=== PATIENT | female | born 1995 | race Caucasian/White ===

== ENCOUNTER 2017-10-29 19:59 | Observation (INO) | payer BC, SELFPAY ==
[2017-10-29] VITALS (13 sets, daily range): BP systolic 107–133; BP diastolic 56–90; PULSE 62–73; RESP 13–19; TEMP 36.6–36.8; O2SAT 97–100
--- NOTE | 2017-10-29 20:28 | ED.NAVMDI ---
HPI - Nausea/Vomiting/Diarrhea General Chief complaint: Nausea/Vomiting/Diarrhea Stated complaint: LIGHTHEADED,NAUSEA,FEVER,FAINTING SPELLS Time Seen by Provider: 10/29/17 20:07 Source: patient and family Mode of arrival: ambulatory Limitations: no limitations History of Present Illness HPI Narrative: Healthy 22-year-old female presents to the emergency department with her mother and a chief complaint of sudden onset dizziness and inability to ambulate while at work. She was mopping when suddenly felt quite dizzy and could no longer walk. She denies recent illness such as runny nose, fever or chills. She has no headache but admits to some blurred vision. Additionally with the onset of the dizziness the patient has very pressured stuttering speech which is new. Finally the patient complains problems with coordination of her left upper extremity, and spelling words incorrectly when trying to text. The symptoms started at 7:30 p.m. initially when the patient presented her only complaint was of dizziness with nausea and it was not until well into her visit that these other symptoms were noticed and mentioned. She does however state that they all started at 7:30 p.m. at this point a code stroke was activated MD complaint: nausea and vomiting Onset (ago): hour(s) Description of Diarrhea: none Associated Abdominal Pain: No Related Data Home Medications Medication Instructions Recorded Confirmed No Known Home Medications 10/29/17 10/29/17 Allergies Allergy/AdvReac Type Severity Reaction Status Date / Time Penicillins Allergy Severe Hives Verified 10/29/17 20:12 acetaminophen [From Vicodin] Allergy Intermediate Hives Verified 10/29/17 20:12 hydrocodone [From Vicodin] Allergy Intermediate Hives Verified 10/29/17 20:12 levothyroxine AdvReac Intermediate Gastrointestinal Verified 10/29/17 20:12 Upset Review of Systems Review of Systems All systems reviewed & are unremarkable except as noted in HPI and below Constitutional Denies chills, Denies fever(s), Denies lethargy and Denies weakness Eyes Denies change in vision, Denies eye discharge, Denies irritation and Denies loss of vision ENT Ears, Nose, Mouth, and Throat: Denies change in voice, Reports vertigo, Reports dizziness, Denies neck pain and Denies sore throat Cardiovascular Denies chest pain, Denies irregular heart rhythm, Denies lightheadedness, Denies palpitations, Denies dyspnea, Denies dyspnea on exertion and Denies orthopnea Respiratory Denies cough, Denies dyspnea, Denies dyspnea on exertion and Denies wheezing Gastrointestinal Gastrointestinal: Denies abdominal pain, Denies change in bowel habits, Denies diarrhea, Denies nausea and Denies vomiting Genitourinary Denies hematuria, Denies flank pain, Denies urinary incontinence and Denies urinary urgency Musculoskeletal Denies neck pain Integumentary/Breasts Denies pruritus, Denies erythema, Denies rash and Denies wounds Neurologic Reports confusion, Reports vertigo, Reports dizziness, Reports lack of coordination, Reports focal weakness, Denies loss of vision and Denies weakness Psychiatric Denies anxiety, Reports confusion, Denies depression, Denies homicidal ideation and Denies suicidal ideation Endocrine Denies palpitations Hematologic/Lymphatic Denies easy bruising Allergic/Immunologic Denies wheezing PFSH Social History Smoking Status: Never smoker Exam Narrative Exam Narrative: 22-year-old female in obvious distress. Difficulty with speech, some confusion Initial Vital Signs Initial Vital Signs: Vital Signs Pulse Rate 62 10/29/17 20:00 Blood Pressure 124/71 H 10/29/17 20:00 Pulse Oximetry 100 10/29/17 20:00 Const General: cooperative, well developed and acute distress Nutritional Appearance: well nourished Orientation: alert, awake, oriented x3 and confused [facility] Head: normocephalic and atraumatic Ears: external ears normal and TM's normal bilaterally Nose: external nose normal and No nasal discharge Face and sinus: sinuses nontender, face symmetric, no sinus tenderness and No dry mucous membranes Mouth: oral mucosae normal and moist mucous membranes Teeth and gingiva: dentition normal Throat: tonsils normal and uvula midline Eyes General: appearance normal, both eyes and all related structures Eyelids: eyelids normal Conjunctivae: conjunctivae normal Sclera: sclerae normal Pupils: PERRL EOM: EOM intact bilaterally Neck Neck: normal visual inspection, trachea midline, No lymphadenopathy, No midline deformity and No JVD Lymphatic: No lymphedema Chest Chest: normal inspection of the chest Resp Effort & Inspection: normal respiratory effort, able to speak in complete sentences, no respiratory distress and no use of accessory muscles Auscultation: clear to auscultation bilaterally, no rales, no rhonchi and no wheezes Cardio Rate: regular rate Rhythm: regular rhythm Heart Sounds: no click, no gallops, no murmurs and no rubs Pulses: normal peripheral pulses GI Inspection: non-distended Palpation: soft, no hepatosplenomegaly, No guarding, No pulsatile mass and No tender Auscultation: normal bowel sounds Back/Spine/Pelvis Back: No CVA tenderness Cervical Spine: cervical ROM normal and No pain with cervical ROM Thoracic/Lumbar Spine: thoracic and lumbar spine normal to inspection Skin General: no rashes or lesions noted, No jaundice and No petechiae Neuro General: alert, oriented x3, moves all extremities, normal light touch, pain and propioception and confused Cranial Nerves: CN's II-XI intact bilaterally Speech: expressive aphasia Motor: strength 5/5 throughout Sensory Exam: no sensory deficits noted Extrem General: full ROM, no clubbing, cyanosis or edema, no pedal edema and no calf tenderness Psych Appearance: well kempt Mental Status: mental status grossly normal Attitude: cooperative Thought Content: normal and suicidality Judgment: judgment good Scores NIH Stroke Scale Level of Conciousness: Alert, keenly responsive Ask month/age: Answers one question correctly, intubated follow commands Open/close eyes, close hand: Performs both tasks correctly Best gaze horizontal: Normal Visual ruano: No visual loss Facial palsy: Normal symetrical movement Left arm drift: No drift for full 10 sec Right arm drift: No drift for full 10 sec Left leg drift: No drift for full 10 sec Right leg drift: No drift for full 10 sec Limb ataxia: Present in one limb Sensory on face/arms/legs: Normal, no sensory loss Best language: Mild to moderate, slurs some words Dysarthria: Normal Extinction or inattention: No abnormality Total NIH Stroke scale score: 3 Course Orders Ordered: ED Orders 10/29/17 20:51 CT angio head and neck Stat 10/29/17 21:27 Urine Microscopic Stat 10/29/17 21:30 Basic Metabolic Panel Stat Complete Blood Count AUTO DIFF Stat Prolactin Stat Sodium Chloride (Normal Saline 0.9%) 1,000 mls @ 150 mls/hr IV CONT [place] Ondansetron HCl (Zofran) 4 mg IV Q4HR PRN PRN Reason: Nausea And Vomiting Last Admin: 10/29/17 20:30 Dose: 4 mg Discontinued Medications Sodium Chloride (Normal Saline 0.9%) 1,000 mls @ 1,000 mls/hr IV BOLUS ONE Stop: 10/29/17 21:29 Last Admin: 10/29/17 20:30 Dose: 1,000 mls/hr Meclizine HCl (Antivert) 50 mg PO NOW ONE Stop: 10/29/17 20:44 Last Admin: 10/29/17 22:02 Dose: Not Given Consultations Consultation #1: Called to stroke physician at [facility] to discuss the case. We had discussion of onset, presentation, evaluation, labs, imaging and are in agreement this is unlikely to be stroke or dissection but sure the opinion that admission for further monitoring and evaluation with MRI is indicated Consultation #2: Dr. Parekh is happy to accept patient onto her service Vital Signs - 8 hr 10/29/17 20:00 10/29/17 20:07 10/29/17 20:20 Temperature 97.9 F Pulse Rate 62 66 67 Respiratory Rate 14 Blood Pressure 107/69 Blood Pressure [Right Arm] 124/71 H 122/70 H Pulse Oximetry 100 99 10/29/17 20:30 10/29/17 21:00 10/29/17 21:30 Temperature Pulse Rate 67 73 70 Respiratory Rate 17 18 Blood Pressure Blood Pressure [Right Arm] 127/69 H 122/71 H 133/90 H Pulse Oximetry 100 100 99 10/29/17 22:00 10/29/17 22:30 10/29/17 23:00 Temperature Pulse Rate 69 72 73 Respiratory Rate 13 15 19 Blood Pressure Blood Pressure [Right Arm] 129/77 H 123/63 H 120/57 L Pulse Oximetry 98 99 98 MDM - Nausea/Vomiting/Diarrhea Lab Data Result diagrams: 10/29/17 21:30 10/29/17 21:30 Lab Results 10/29/17 10/29/17 10/29/17 Range/Units 21:27 21:30 21:30 WBC 14.5 H (4.5-11.0) X10^3/uL RBC 4.84 (4.0-5.2) X10^6/uL Hgb 14.5 (12.0-16.0) g/dL Hct 43.1 (36-46) % MCV 89.0 (80-100) fL MCH 29.9 (26-34) PG MCHC 33.6 (30-36) % RDW 13.8 (11.6-14.8) % Plt Count 347 (150-400) X10^3/uL Neut % (Auto) 72.7 (50-75) % Lymph % (Auto) 17.7 L (25-40) % [place] % (Auto) 6.6 (3-14) % Eos % (Auto) 2.3 (2-4) % Baso % (Auto) 0.7 (0-2) % Neut # (Auto) 07231 H (9634-2359) /uL Sodium 140 (137-145) mmol/L Potassium 3.9 (3.4-5.1) mmol/L Chloride 102 (98-107) mmol/L Carbon Dioxide 23 (22-32) mmol/L BUN 15 (7-17) mg/dL Creatinine 0.80 (0.52-1.04) mg/dL Estimated GFR > 60.0 (>60) mL/min BUN/Creatinine Ratio 18.8 (6-22) Glucose 83 (70-100) mg/dL Calcium 9.4 (8.4-10.2) mg/dL Prolactin 27.9 H (3.0-18.6) ng/mL Urine RBC None seen (0-5/HPF) Urine WBC 0-1/hpf (0-5/HPF) Ur Squamous Epith Cells 1-5 /hpf Urine Bacteria Occasional (0-1) (None) Ur Culture Indicated? Cult not indicated Micro UA Comment Not Reportable Discharge Plan Departure Patient Disposition: Admitted As Inpatient Clinical Impression: Expressive aphasia, Acute focal neurological deficit Admit Date/Time: 10/29/17 22:48 Admit Provider: Suzan Parekh
--- NOTE | 2017-10-29 20:28 | PC.NURSE ---
acute onset nausea/dizziness while at work, denies abd pain/fever/chills/trauma/diarrhea/dysuria/vaginal bleeding or other sx, alert/oriented x3 denies LOC, periph pulses strong/equal, reports mild relief while supine with eyes closed
[2017-10-29] MEDS: SODIUM CHLORIDE 0.9% 1,000 ML 1000 ML IV (20:30)
[2017-10-29] MEDS: ONDANSETRON 4 MG/2 ML INJ IV (20:30)
--- NOTE | 2017-10-29 20:48 | PC.NURSE ---
2044 pt using call light, reports lt hand not working, unequal fruit sprayer strength on exam, reports onset just now, MD Abreu notified, at bedside 2047
--- NOTE | 2017-10-29 20:51 | DI.CT.S_ITS ---
PROCEDURE: CT ANGIO HEAD AND NECK INDICATIONS: TPA CANDIDATE, stroke symptoms, LEFT HAND NUMBNESS, SLURRED SPEECH TECHNIQUE: Pre-contrast 4.5 mm thick sections acquired from the foramen magnum to the vertex. After the administration of intravenous contrast, 1 mm thick sections acquired from the aortic arch through the [place] of [place]. Post-contrast 4.5 mm thick sections then re-acquired from the foramen magnum to the vertex. 3-dimensional vqeygwb-veqpgubfh-iuqefrmfgk (MIP) and/or volume rendering reformats were acquired of the central intracranial vasculature and neck separately. COMPARISON: None. FINDINGS: Image quality: Excellent. BRAIN: CSF spaces: Ventricles are normal in size and shape. Basal cisterns are patent. No extra-axial fluid collections. Brain: No midline shift. No intracranial bleeds or masses. Reddy-white matter interface appears intact. Skull and face: Calvarium and facial bones appear intact, without suspicious lesions. Orbits appear normal. Sinuses: Sinuses and mastoids are clear. HEAD CT ANGIOGRAPHY: Anterior circulation: Intracranial internal carotid arteries are normal in size and flow. The flow within the paired anterior cerebral arteries is normal and symmetric. The flow within the middle cerebral arteries is normal and symmetric. The anterior communicating artery is seen. No aneurysms are seen. Posterior circulation: Visualized portions of the vertebral arteries demonstrate normal caliber, and join to form a normal appearing basilar artery. Flow within the posterior cerebral arteries is normal and symmetric. No aneurysms are seen. NECK CT ANGIOGRAPHY: Carotid system: The great vessels demonstrate a conventional anatomy as they arise from the aortic arch. The origins of the common carotid arteries appear patent. The common carotid arteries demonstrate normal caliber and courses. The bifurcation regions are both widely patent. The internal carotid arteries demonstrate normal calibers and courses. Posterior circulation: The origins of the vertebral arteries both appear widely patent. The more superior extracranial portions of both vertebral arteries also demonstrate normal courses and calibers. They join to form a normal appearing basilar artery. Soft tissues: Multiple bilateral thyroid nodules are present. Bones: No suspicious bony lesions. Visualized cervical spine appears normally aligned. IMPRESSION: 1. Negative CT angiography of the head and neck. 2. No acute intracranial abnormality. 3. Bilateral thyroid nodules, which could be further assessed with nonemergent ultrasound, if clinically indicated. Any quantitative measurements of stenosis were performed using NASCET criteria. Dictated by: Jose Alejandro Jenkins M.D. on 10/29/2017 at 21:34 Approved by: Jose Alejandro Jenkins M.D. on 10/29/2017 at 21:37
--- NOTE | 2017-10-29 20:54 | PC.NURSE ---
2047 MD Abreu activated Code Stroke, DI at bedside
[2017-10-29 21:38] LABS: Add Manual Diff / Slide Review NO; Basophils Percent Auto 0.7 % (0-2); Eosinophils Percent Auto 2.3 % (2-4); Hematocrit 43.1 % (36-46); Hemoglobin 14.5 g/dL (12.0-16.0); Lymphocytes Percent Auto 17.7 % (25-40); Mean Corpuscular HGB Conc 33.6 % (30-36); Mean Corpuscular Hemoglobin 29.9 PG (26-34); Monocytes Percent Auto 6.6 % (3-14); Neutrophils Absolute Auto 10600 /uL (3000-5900); Neutrophils Percent Auto 72.7 % (50-75); Platelet Count 347 X10^3/uL (150-400); Red Blood Cell Count 4.84 X10^6/uL (4.0-5.2); Red Cell Distribution Width 13.8 % (11.6-14.8); White Blood Cell Count 14.5 X10^3/uL (4.5-11.0)
[2017-10-29 21:39] LABS: RBC Urine None Seen (0-5/HPF)
[2017-10-29 21:49] LABS: Bacteria Urine Occasional (0-1); Culture Indicated Urine Cult Not Indicated; Squamous Epithelial Cell Urine 1-5 /HPF; WBC Urine 0-1/HPF (0-5/HPF)
[2017-10-29 21:53] LABS: BUN Creatinine Ratio 18.8 (6-22); Blood Urea Nitrogen 15 mg/dL (7-17); Calcium 9.4 mg/dL (8.4-10.2); Carbon Dioxide 23 mmol/L (22-32); Chloride 102 mmol/L (98-107); Estimated Glomerular Filt Rate > 60.0 mL/min (>60); Glucose 83 mg/dL (70-100); HEMOLYSIS < 15 (0-50); Potassium 3.9 mmol/L (3.4-5.1); Sodium 140 mmol/L (137-145)
--- NOTE | 2017-10-29 21:58 | PC.NURSE ---
Delay in obtaining lab work, could not obtain from IV site
--- NOTE | 2017-10-29 22:01 | PC.NURSE ---
Reassess completed by Brady DIAZ
[2017-10-29 22:10] LABS: Prolactin 27.9 ng/mL (3.0-18.6)
[2017-10-29] MEDS: SODIUM CHLORIDE 0.9% 1,000 ML 150 ML IV (22:40)
--- NOTE | 2017-10-29 23:23 | PC.NURSE ---
On reassess, pt speech appears improved, pt states aphasia sx comes in waves, mother at bedside updated with status per pt request, no other changes to exam
[2017-10-30] VITALS: BP 103/59; PULSE 67; RESP 18; O2SAT 98
[2017-10-30 00:04] VITALS: BMI 33.3
[2017-10-30] MEDS: SODIUM CHLORIDE 0.9% 1,000 ML 125 ML IV ×2 (00:31→07:54)
--- NOTE | 2017-10-30 01:33 | PC.ADMIT ---
[address] Admission Note: Pt arrived on unit via stretcher at 2355 to room 208. Able to transfer self to bed independently. Pt accompanied by mother. Able to complete admission assessment. NIH score 3. Numbness reported in left hand, no drift noted in extremities bilaterally. Pt's speech remains slurred and delayed but able to answer questions and is conversive. Able to swallow water/ apple sauce without difficulty. Denies pain/ dizziness. IVF infusing. Oriented to room and call light. Belongings at the bedside. Family went home for the night. Bed alarm on for safety. The patient,STEWART CARCAMO,22 y/o, was given written information regarding hospital policies, unit procedures and contact persons. Patient's smoking status: Never smoker. Vital Signs - 8 hr 10/29/17 20:00 10/29/17 20:07 10/29/17 20:20 Temperature 97.9 F Pulse Rate 62 66 67 Respiratory Rate 14 Blood Pressure 107/69 Blood Pressure [Right Arm] 124/71 H 122/70 H Pulse Oximetry 100 99 10/29/17 20:30 10/29/17 21:00 10/29/17 21:30 Temperature Pulse Rate 67 73 70 Respiratory Rate 17 18 Blood Pressure Blood Pressure [Right Arm] 127/69 H 122/71 H 133/90 H Pulse Oximetry 100 100 99 10/29/17 22:00 10/29/17 22:30 10/29/17 23:00 Temperature Pulse Rate 69 72 73 Respiratory Rate 13 15 19 Blood Pressure Blood Pressure [Right Arm] 129/77 H 123/63 H 120/57 L Pulse Oximetry 98 99 98 10/29/17 23:15 10/29/17 23:30 10/29/17 23:45 Temperature Pulse Rate 71 67 72 Respiratory Rate 15 15 18 Blood Pressure Blood Pressure [Right Arm] 119/64 117/63 118/56 L Pulse Oximetry 99 98 98 10/29/17 23:55 10/30/17 00:00 Temperature 98.3 F Pulse Rate 71 67 Respiratory Rate 16 18 Blood Pressure 122/62 H Blood Pressure [Right Arm] 103/59 L Pulse Oximetry 97 98
[2017-10-30 04:24] VITALS: BP 121/62; PULSE 68; RESP 16; TEMP 36.8; O2SAT 97
--- NOTE | 2017-10-30 07:00 | DI.MRI.S_ITS ---
PROCEDURE: MR STROKE Pre- and post-contrast brain MRI, non-contrast brain MR angiogram, pre- and postcontrast neck MR angiogram INDICATIONS: focal neurologic findings. Speech difficulties. Left arm numbness TECHNIQUE: Brain: Noncontrast axial T1 spin echo, axial T2 fast spin echo, sagittal and axial FLAIR, coronal T2 fast spin echo, axial gradient echo, axial diffusion and ADC through the brain. After the administration of contrast, axial 3D VIBE of the cranial vasculature and brain. Brain MRA: Non-contrast 3-D time of flight MR angiogram, with multiple ihoclye-jxigsfnjb-fzhxlrysmg (MIP) reformats performed. Neck MRA: Axial and sagittal TruFISP through the neck. Coronal dynamic MR angiogram during administration of contrast in the arterial and venous phases, with 3-dimenstional wbetyup-lxyisuryk-uygcfhkwkz (MIP) reformats constructed from subtraction images. COMPARISON: US, THYROID,NECK OR HEAD SONOGRAM, 11/24/2009, 14:25. [facility], CT, CT ANGIO HEAD AND NECK, 10/29/2017, 20:55. FINDINGS: Image quality: Excellent. BRAIN: CSF spaces: Ventricles are normal in size and shape. Basal cisterns are patent. No extra-axial fluid collections. Brain: No intracranial bleeds or mass effects. Reddy-white matter interface is normal. Diffusion weighted images show no acute ischemic insults. Brainstem appears normal. Normal intravascular flow voids are present. No abnormal intracranial enhancement. Skull and face: Calvarial marrow signal is normal. Orbits appear normal. Sinuses: Sinuses and mastoids are clear. BRAIN MR ANGIOGRAM: Anterior circulation: Intracranial internal carotid arteries are normal in size and enhancement. The flow within the paired anterior cerebral arteries is normal and symmetric. The flow within the middle cerebral arteries is normal and symmetric. The anterior communicating artery is seen. No stenoses, occlusions, or aneurysms. Posterior circulation: The visualized portions of the vertebral arteries demonstrate normal caliber, and join to form a normal appearing basilar artery. The flow within the posterior cerebral arteries is normal and symmetric. No stenoses, occlusions, or aneurysms. NECK MR ANGIOGRAM: Carotids: Great vessels demonstrate a bovine arch, consistent with congenital anatomy. The origins of the common carotid arteries appear patent. The calibers and courses of both common carotid arteries are normal. The bifurcation regions appear normal bilaterally. The internal carotid arteries demonstrate normal course and caliber. Posterior circulation: The origins of the vertebral arteries appear patent. More superior portions of both vertebral arteries demonstrate normal course and caliber, and join to form a normal appearing basilar artery. Miscellaneous: Subclavian arteries appear patent. Pre-contrast images through the neck show no soft tissue abnormalities. Thyroid gland demonstrates focal areas of heterogeneous signal, corresponding to areas of heterogeneous attenuation/echogenicity identified on prior exams. IMPRESSION: 1. No acute intracranial process. No visualized acute ischemia. 2. No areas of hemodynamically significant stenosis, vascular occlusion or aneurysmal dilation within the anterior circulation. 3. No areas of hemodynamically significant stenosis, vascular occlusion or aneurysmal dilation within the posterior circulation. 4. No areas of hemodynamically significant stenosis, vascular occlusion or aneurysmal dilation within the neck vasculature. Dictated by: Yomaira Jones M.D. on 10/30/2017 at 15:27 Approved by: Yomaira Jones M.D. on 10/30/2017 at 15:34
[2017-10-30 07:35] VITALS: BP 111/67; PULSE 80; RESP 16; TEMP 36.7; O2SAT 99
[2017-10-30] MEDS: ONDANSETRON 4 MG/2 ML INJ IV (07:55)
[2017-10-30] MEDS: LEVOTHYROXINE 112 MCG TABLET PO (10:01)
--- NOTE | 2017-10-30 10:01 | P.HP_ITS ---
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 She says she ran out of her refills and has not found a primary care doctor locally. 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 She felt like she was spinning around in the chair for too long. She subsequently started feeling warm inside her body and had nausea. She sat down and rest. She had a brief loss of consciousness. She was brought to the [facility] Emergency room by her coworkers. She was noticed to have expressive a aphasia with slurred speech. She had mild headache. She has not had any fever overnight. She feels her vertigo is better this morning. She was able to ambulate to the bathroom holding onto the IV pole. She was also able to keep her food down after breakfast. Patient History Medical History Dipak's disease (Acute) IUD (intrauterine device) in place (Acute) Comment: Dipak thyroiditis, off medication for 3 month Tonsillectomy a year ago Family & Social History Social History: household members significant other,friend(s) Prior Living Arrangements Apartment/Condo Safety & Behavioral: Feels Safe in Current Yes Environment Been Physically Hurt or No Threatened By a Person Suicidal Ideation Description None Suicide Plan Description No Plan Tobacco & Substance use: Tobacco type cannabis/marijuana Smoking Status Never smoker alcohol intake never alcohol intake frequency 0-2 drinks per day Substance Use Type does not use Comment: Social history: She is single. She has with her current partner for about a year. She drinks a glass of wine occasionally. She denies alcohol drinking. Family history: Father had heart attack at age 39. He had cardioversion for tachycardia. Mother has hypothyroidism and ADHD. She also had gestational diabetes. Meds Home Medications Medication Instructions Recorded Confirmed Type levothyroxine [Synthroid] 110 mcg PO DAILY 10/30/17 10/30/17 History Allergies Allergy/AdvReac Type Severity Reaction Status Date / Time Penicillins Allergy Severe Hives Verified 10/29/17 20:12 acetaminophen [From Vicodin] Allergy Intermediate Hives Verified 10/29/17 20:12 hydrocodone [From Vicodin] Allergy Intermediate Hives Verified 10/29/17 20:12 levothyroxine AdvReac Intermediate Gastrointestinal Verified 10/29/17 20:12 Upset Review of Systems Cardiovascular Comments: No chest pain or shortness of breath Respiratory Comments: No cough Gastrointestinal Gastrointestinal: Reports nausea Genitourinary Comments: Denies dysuria Neurologic Neurologic: Reports as per HPI Exam Vital Signs (past 8 hours): - 10/30/17 04:24 10/30/17 07:35 Temperature 98.3 F 98.1 F Pulse Rate 68 80 Respiratory Rate 16 16 Blood Pressure 121/62 H 111/67 Pulse Oximetry 97 99 Oxygen Delivery Method Room Air Oxygen Flow Rate 98 Narrative Exam Narrative: GENERAL: Well-appearing, well-nourished and in no acute distress. HEENT: Head normocephalic, atraumatic. Eyes pupils equal round NECK: Supple, no JVD, CHEST: Breath sounds equal bilaterally, no wheezes rales or rhonchi. CARDIAC: Regular rate and rhythm without murmurs, rubs or gallops. ABDOMEN: Soft, nontender. Normoactive bowel sounds all 4 quadrants. No guarding or rebound. EXTREMITIES: Normal range of motion, no clubbing or edema. NEUROLOGICAL: Alert and oriented; her speech is slurred. She is able to answer questions appropriately. Normal muscle strength in upper and lower extremities no facial weakness. SKIN: Warm, dry, no petechiae, no rashes or lesions. Objective Imaging CT scan - head: Radiologist's impression: Head and neck CT angiogram: 1. Negative CT angiography of the head and neck. 2. No acute intracranial abnormality. 3. Bilateral thyroid nodules, which could be further assessed with nonemergent ultrasound, if clinically indicated. Labs Result Diagrams: 10/29/17 21:30 10/29/17 21:30 Labs: Laboratory Results - last 24 hr 10/29/17 10/29/17 10/29/17 21:27 21:30 21:30 WBC 14.5 H RBC 4.84 Hgb 14.5 Hct 43.1 MCV 89.0 MCH 29.9 MCHC 33.6 RDW 13.8 Plt Count 347 Neut % (Auto) 72.7 Lymph % (Auto) 17.7 L [place] % (Auto) 6.6 Eos % (Auto) 2.3 Baso % (Auto) 0.7 Neut # (Auto) 70401 H Sodium 140 Potassium 3.9 Chloride 102 Carbon Dioxide 23 BUN 15 Creatinine 0.80 Estimated GFR > 60.0 BUN/Creatinine Ratio 18.8 Glucose 83 Calcium 9.4 Prolactin 27.9 H Urine RBC None seen Urine WBC 0-1/hpf Ur Squamous Epith Cells 1-5 /hpf Urine Bacteria Occasional (0-1) Ur Culture Indicated? Cult not indicated Micro UA Comment Not Reportable Assessment & Plan Plan: Assessment/Plan Narrative: 1. Vertigo, slurred speech: Concerning for possible encephalopathy or encephalitis. Patient has been afebrile. She does not seem to have significant headache. We will do brain MRI this morning to further evaluate for possible demyelinating disease. She has been off her thyroid medication for about 3 months. Dipak's encephalopathy is a possibility. We will check her TSH. Start her back on Synthroid at 112 mcg daily. Start PT evaluation and treatment. Use meclizine and Zofran as needed for symptomatic control. 2. Hypothyroidism: As stated earlier were going to restart her Synthroid per outpatient dosing. We will also check TSH.
--- NOTE | 2017-10-30 11:04 | PT.IIE ---
Medical History Dipak's disease (Acute) IUD (intrauterine device) in place (Acute) Physical Therapy Inpatient Evaluation/Re-Eval Medical Review Prior Functional Status Medical History Reviewed Yes Diet/Fluid Consistency Regular Communication no known deficits Mobility and Gait completely independent Social History Household Members significant other friend(s) Living Arrangements Apartment/Condo Additional Social History Comment does work - need to find out more about type of work Physical Therapy Current Condition Current Condition Evaluation Date 10/30/17 Treatment Diagnosis L hand weakness, impaired balance Onset Date 10/29/17 Subjective Physical Therapy Visit Type Type Initial Evaluation Visit Start Time 09:30 Visit Stop Time 10:35 Total Visit Minutes 65 Physical Therapy Visit Comments Patient Comments Pt has unique speaking pattern but is able to completely express herself with extra time. Pt in high spirits, reports doing well, very agreeable to participate in therapy. Therapy Pain Assessment Pain When Pain Assessed At Rest Pain Present Pain Present Denied Pain PT-Bed Mobility Assessment Supine to Sit Supine to Sit Independent Sit to Supine Sit to Supine Independent PT-Transfer Assessment Sit to and From Stand Sit to and from Stand Contact Guard Assistance Equipment Transfer Assistive Device Gait Belt Transfer Ability Level of Assist 1 Person Assistance Comments Mobility Comments Pt able to perform sit<>stand from EOB without physical assist, no LOB observed, pt denied dizziness. Gait Assessment Gait Gait Assistance Required: Contact Guard Assist Minimum Assistance 1 Person Assist Distance (Feet) (feet) 215 Assistive Devices Assistive Device Gait Belt Gait Deviations General Gait Pattern Decreased Stride Length Wide Based Gait Factors Limiting Gait Function Factors Limiting Gait Function Incoordination Poor Balance Comments Gait Comments Pt with wide and short steps with exagerrated contralateral trunk lean with each step, and slow gait velocity, limited arm swing and no trunk /pelvic rotation. Pt not able to dual task while walking ( cognitive or physical) without signficant degradation of gait quality. Stair Climbing Assessment Comments Stair Climbing Comments not tested PT-Balance Assessment Sitting Balance and Reactions Static Sitting Balance Ability Normal Dynamic Sitting Balance Ability Good Standing Balance and Reactions Static Standing Balance Ability Good Dynamic Standing Balance Ability Fair Device Used none Orientation Orientation/Cognition Level of Alertness Alert Orientation Name Age Birthday Month Date Year Day of Week Place Situation Safety Awareness Understands Safety Issues Memory Description No Deficits Noted Comments speech is almost stuttering and very slow Gross Range of Motion Upper Extremity ROM Assessment Within Functional Limits Lower Extremity ROM Assessment Within Functional Limits Strength Comments Strength Comments RUE/RLE/LLE all WFL (5/5) L shoulder grossly 5/5 L elbow flex/ext 5/5 L forearm sup/pro 4/5 L wrist 3/5 L safety security officer weak Coordination Assessment Gross Coordination Gross Coordination Impaired Assessment Finger to Nose Test Moderate Impairment Pronation/Supination Test Moderate Impairment Foot Tapping Test Moderate Impairment Heel on Saucedo Test Moderate Impairment Sensation Assessment Sensation Light Touch Intact Proprioception (Position) Impaired Comments Sensation Comments proprioception: R thumb completely intact (100 % accurate) L thumb impaired, almost absent (<25% accurate) R great toe slightly impaired (75% accurate) L great toe impaired (50% accurate) Muscle Tone Comments Muscle Tone Comments WNL Physical Therapy Treatment Education Education Provided Safety PT Summary Assessment and Plan Potential Rehabilitation Potential Good Status of Condition at Evaluation Evolving Summary Impairments Balance Sensation Assessment Summary Pt presents with proprioception and motor control deficits that require pt to need assist with all OOB mobility. Pt also with intermittent dizziness that caused imbalance and the need for up to min A while walking. Pt's description does sound like it could have a vestibular involvement, however, it would not explain pt's other signs/symptoms. Will hold vestibular eval for now. Pt will likely be safe to discharge home with 24/7 assist, however, pt may benefit from daily high intensity therapy if pt's symptoms do not resolve prior to being medically ready to discharge. Will continue to monitor. Goals Bed Mobility Goal Independent Transfer Goal Independent Gait Goal Independent Gait Distance 400 Days to Meet Goals 3 Frequency of Treatment Frequency Of Treatment Twice a Day Treatment Plan Physical Therapy Treatment Plan Gait Training Therapeutic Exercise Balance Retraining Discharge Planning Neuromuscular Re-ed Coordination Retraining Recommendations To Nursing Amount of Assist Needed 1 Person Assist Discharge Recommendations PT Discharge Recommendations Home with 24/7 Assist Acute Rehab
--- NOTE | 2017-10-30 11:25 | PC.NURSE ---
1000 Pt is A &Ox3. C/o weakness to Left hand, has feeling when touched, denies tingling. Pt has a stutter like speech, which Pt states is new. CHANI x 3. No drift. Dr Parekh ordered Thyroid lab. !!!5 Pt gone for a MRI via w/c.
[2017-10-30 11:27] LABS: Free T4, Direct Thyroxine 1.15 ng/dL (0.78-2.19)
[2017-10-30 12:15] VITALS: BP 112/65; PULSE 80; RESP 18; TEMP 36.8; O2SAT 99
[2017-10-30 15:21] VITALS: BP 121/69; PULSE 69; RESP 16; TEMP 37.2; O2SAT 97
--- NOTE | 2017-10-30 15:37 | CM.DANOTE ---
Discharge Planning/Care Management CM Discharge Assessment Start: 10/30/17 15:35 Freq: Status: Active Protocol: Document 10/30/17 15:36 RL (Rec: 10/30/17 15:37 RL [id number]) Discharge Planning Assessment History Provided By Patient Parents Has Patient been admitted in last 30 No days? Is this patient on Medicare? No Is the admit diagnosis the same? Yes Prior Living Arrangements Apartment/Condo Household Members friend(s) Type of transporation used prior to Drives own vehicle admit Independent with ADL's Yes Is patient alert and oriented? Yes: forgetful, very altered speech Caregiver for Another No Discharge Plan Home Review Status Complete DCP Initial Eval: Met with patient and her mother/POA Dary Leyva. Verified Dary's phone number and demographic sheet. Patient with very altered speech, stuttering. All state that she was completely independent in all ADLs prior to this incident. Mother shared that they are very disappointed and likely will transfer patient to another hospital, possibly in [place]. States we have not gotten any answers and she has not gotten any better. She has not seen a doctor yet today. AKP stated will tell attending nurse this information, and will request that Dr. Parekh come in to speak with patient and family to discuss test results and plan. They stated this is NOT an L&I claim; that patient has [employer]. This was not a work-related incident. contacted: Floor nurse Silva and gave information on patient/family disappointment and desire to transfer to another hospital. Silva stated Dr. Parekh did come in to see patient this morning. New nurse coming on shift to follow up, inform Dr. Parekh if she is available. Plan: Possible transfer to another facility? Patient and family plan is for her to d/c home when stable. Sangeetha De Souza, FRANTZ
--- NOTE | 2017-10-30 15:40 | PC.NURSE ---
Addendum entered by Tomeka Bermudez R.N. 10/30/17 18:06: 1710 Alerted coordinator Nelly on pt father's frustration and stating he is wanting all daughters labs and reports. Nelly at bedside to talk with pt and her father. Original Note: 1540: Pt A&Ox3, calm and cooperative with care. Pt c/o numbness in L hand, pulling unit floorhand unequal and weak when comparing pulling unit floorhand to her R hand. No arm or leg drift present. Pt speech slurred, delayed, trouble finding words at times, although pt able to express her needs known to staff and is awake and conversive. RA, 98%, LS clear, denies SOB. Pt denies pain. NIH of 3 d/t pt numbness in her L hand and pt speech. Per care management during shift report, pt family expresses their concern to take pt to [place], and pt family frustrated with not receiving any answers from Doctor from pt MRI done today. 1700: Pt father at bedside, expressing his frustration with being told [facility] has a neurologist, stating he is wanting to take his daughter to [place]. Alerted Dr. Parekh.
== END 2017-10-30 17:20 | disposition home or self-care (01) ==
LOC: ED 22:20 → AC 10-30 06:35
PROVIDERS: Admitting Provider Internal Medicine; Emergency Provider Emergency Medicine; Visit Provider Internal Medicine
DX: R42 Dizziness and giddiness (principal); R11.2 Nausea with vomiting, unspecified; R47.81 Slurred speech; E06.3 Autoimmune thyroiditis
CPT/HCPCS: 70496; 70498; 70553; 80048; 81003; 81015; 81025; 84146; 84439; 84443; 85025; 93005; 96361; 96374; 97116; 97162; 97530; 99285; G0378; A9579; J2405; Q9967

== ENCOUNTER 2020-12-17 18:05 | Emergency (ER) | payer OTHER, SELFPAY ==
[2020-12-17 18:35] VITALS: BP 117/62; PULSE 92; RESP 14; TEMP 37.6; O2SAT 100; BMI 31.1
[2020-12-17 19:33] LABS: COVID19 -Nasal RAPID POSITIVE (Negative)
--- NOTE | 2020-12-18 04:20 | ED.HA ---
HPI - Headache General Chief Complaint: Headache Stated Complaint: EXPOSED TO COVID HEADACHE Time Seen by Provider: 12/17/20 19:06 Mode of arrival: Ambulatory Limitations: no limitations History of Present Illness HPI Narrative: 25-year-old female occasionally vapes and otherwise healthy presents with a roommate after being exposed to another roommate with known COVID. She states her roommate just return from a music festival on Sunday and started having symptoms yesterday and was tested and found to be positive. She has not had her vaccination. She has a mild vague headache and some nasal congestion but denies any sore throat, fever, chills, chest pain, cough or shortness of breath. Related Data Previous Rx's Medication Instructions Recorded levothyroxine 112 mcg tablet 112 mcg PO 0600 #30 tab 10/30/17 Allergies Allergy/AdvReac Type Severity Reaction Status Date / Time Penicillins Allergy Severe Hives Verified 10/29/17 20:12 acetaminophen [From Vicodin] Allergy Intermediate Hives Verified 10/29/17 20:12 hydrocodone [From Vicodin] Allergy Intermediate Hives Verified 10/29/17 20:12 levothyroxine AdvReac Intermediate Gastrointestinal Verified 10/29/17 20:12 Upset Review of Systems Review of Systems Narrative: GENERAL: See HPI HEENT: Denies sinus pain, ear pain, sore throat, difficulty swallowing, dizziness. RESPIRATORY: Denies dyspnea, cough, wheezing, hemoptysis, sputum. CARDIOVASCULAR: Denies chest pain, palpitations, orthopnea, edema, GASTROINTESTINAL: Denies nausea, vomiting, abdominal pain, diarrhea, constipation, melena. : Denies dysuria, frequency, incontinence, hematuria, urinary retention. MUSCULOSKELETAL: denies weakness, joint pain, or bony pain SKIN: Denies rash, skin lesions, or other NEUROLOGIC: See HPI PSYCHIATRIC: No concerning psychosocial issues. 12 point review of systems is negative except for those stated above Patient History Medical History Dipak's disease IUD (intrauterine device) in place Social History household members: friend(s) Smoking Status: Never smoker alcohol intake: never Smoking Status: Never smoker alcohol intake frequency: 0-2 drinks per day Substance Use Type: marijuana Exam Narrative Exam Narrative: GENERAL: [25] year old patient appears stated age. Well-developed patient, in mild distress. HEAD: Atraumatic. Normocephalic. EYES: Pupils equal round and reactive. Extraocular motions intact. No scleral icterus. No injection or drainage. ENT: Nose without bleeding, purulent drainage. Throat without erythema, tonsillar hypertrophy or exudate. Airway patent. NECK: Trachea midline. Non tender CARDIOVASCULAR: Regular rate and rhythm without murmurs, gallops, or rubs. RESPIRATORY: Clear to auscultation. Breath sounds equal bilaterally. No wheezes, rales, or rhonchi. GASTROINTESTINAL: Abdomen soft, non-tender, nondistended. EXTREMITIES: No edema or joint tenderness. BACK: Nontender without deformity or crepitance. No flank tenderness. NEURO: AOx3. SKIN: No rash or erythema of visible areas Initial Vital Signs Initial Vital Signs: Vital Signs Temperature 99.6 F 12/17/20 18:35 Pulse Rate 92 H 12/17/20 18:35 Respiratory Rate 14 12/17/20 18:35 Blood Pressure 117/62 12/17/20 18:35 Pulse Oximetry 100 12/17/20 18:35 MDM - Headache Lab Data Labs: Lab Results 12/17/20 Range/Units 18:53 SARS-CoV-2 (PCR) Positive H (Negative) MDM Narrative Medical decision making narrative: Patient very well-appearing and without signs of respiratory distress, no indication for extensive workup, return precautions given and questions answered to her apparent satisfaction. Discharge Plan Departure Patient Disposition: Home Clinical Impression: COVID-19 Instructions: DI for COVID-19 (Suspected or Confirmed ) Activity Restrictions/Additional Instructions: *You have been diagnosed with [ COVID-19] *What to do: * per recommendations from the CDC and the [facility] Department of Health * stay home except to get medical care. Restrict activities outside your home, except for getting medical care. Do not go to work, school, or public areas. Avoid using public transportation, ride sharing, or taxis. * separate yourself from other people in your home. * call ahead before visiting your doctor * Wear a facemask * Cover your coughs and sneezes * Clean your hands often * Avoid sharing household items * Clean all high-touch services every day * Monitor your symptoms and seek prompt medical attention if your illness is worsening, particularly with difficulty in breathing. You may discontinue your isolation when: 1. You have been fever-free for at least 24 hours without the use of fever reducing medication, AND 2. Your symptoms are getting better 3. At least 10 days have passed since symptoms first appeared Individuals with laboratory confirmed COVID-19 who have not had any symptoms may discontinue home isolation when at least 10 days have passed since the date of their first COVID-19 diagnostic test and have had no subsequent illness Please consider getting a pulse oximeter on line at [facility] to check the percentage of oxygen in her blood at home, if it dips into the 80s he would need to be seen again Prescriptions: No Action levothyroxine 112 mcg Tablet 112 mcg PO 0600 Qty: 30 RF: 0
== END 2020-12-17 20:06 | disposition home or self-care (01) ==
PROVIDERS: Emergency Provider Emergency Medicine
DX: U07.1 COVID-19 (principal)
CPT/HCPCS: 87635; 99281; 99282; C9803

== ENCOUNTER → 2024-02-05 10:20 | Outpatient (CLI) | payer OTHER, MEDICAID, SELFPAY ==
[2024-02-05 12:35] LABS: Free T4, Direct Thyroxine 0.55 ng/dL (0.78-2.19)
== END ==
PROVIDERS: PCP Student in an Organized Health Care Education/Training Program; Referring Provider Student in an Organized Health Care Education/Training Program; Visit Provider Student in an Organized Health Care Education/Training Program
DX: E03.9 Hypothyroidism, unspecified (principal)
CPT/HCPCS: 36415; 84439; 84443

== ENCOUNTER → 2024-03-12 10:18 | Outpatient (CLI) | payer OTHER, MEDICAID, SELFPAY ==
--- NOTE | 2024-03-12 10:20 | DI.RAD.S_ITS ---
PROCEDURE: XR HIP W PEL IF DONE RT 2V INDICATIONS: pain TECHNIQUE: AP pelvis and lateral view of the hip acquired. COMPARISON: None. FINDINGS: Bones: There are no osseous abnormalities. SI and hip joints: Normal in width and alignment without arthritic change Soft tissues: No soft tissue swelling, calcification or mass. IMPRESSION: Normal pelvis Dictated by: Marcelo Rodriguez M.D. on 03/13/2024 at 11:40 Approved by: Marcelo Rodriguez M.D. on 03/13/2024 at 11:41
[2024-03-12 12:05] LABS: TSH w/ Reflex to FT4 8.36 uIU/mL (0.47-4.68)
[2024-03-12 12:32] LABS: Free T4, Direct Thyroxine 0.71 ng/dL (0.78-2.19)
== END ==
PROVIDERS: PCP Student in an Organized Health Care Education/Training Program; Referring Provider Student in an Organized Health Care Education/Training Program; Visit Provider Student in an Organized Health Care Education/Training Program
DX: S79.919A Unspecified injury of unspecified hip, initial encounter (principal); M25.559 Pain in unspecified hip; E03.9 Hypothyroidism, unspecified; X58.XXXA Exposure to other specified factors, initial encounter
CPT/HCPCS: 36415; 73502; 84439; 84443

== ENCOUNTER → 2024-05-05 12:35 | Outpatient (CLI) | payer OTHER, SELFPAY ==
[2024-05-05 14:17] LABS: TSH w/ Reflex to FT4 3.88 uIU/mL (0.47-4.68)
== END ==
PROVIDERS: PCP Student in an Organized Health Care Education/Training Program; Referring Provider Student in an Organized Health Care Education/Training Program; Visit Provider Student in an Organized Health Care Education/Training Program
DX: E03.9 Hypothyroidism, unspecified (principal)
CPT/HCPCS: 36415; 84443

== ENCOUNTER 2025-01-09 11:26 | Emergency (ER) | payer OTHER, SELFPAY ==
[2024-08-01 08:03] VITALS: BMI 33.3
[2025-01-09 11:47] VITALS: BP 141/69; PULSE 67; RESP 20; TEMP 37; O2SAT 100; BMI 42.4
--- NOTE | 2025-01-09 14:06 | ED.FEMALEGU ---
HPI - Female Genitourinary <Kristi Murphy PA-C - Last Filed: 01/09/25 19:19> General Chief complaint: Urogenital-Female Stated complaint: Sent from [facility], bump on pubic area x 4 days Time Seen by Provider: 01/09/25 13:21 Source: patient Mode of arrival: Ambulatory History of Present Illness HPI Narrative: Deann Rincon is a pleasant 29-year-old female with a past medical history of hypothyroidism, bipolar, PTSD, ADHD who presents to emergency department for a ?bump? on her left pubic area x4 days. Patient reports that on Sunday she noticed a small bump that she thought might be an ingrown hair on the left side of her mons pubis region/groin fold. Despite using warm compresses and soaking in the bath, this areas continued to get larger and become more painful, hot, red, swollen. She went to the walk-in clinic and was sent to the ER for further evaluation and treatment for concern of a large abscess. Patient states she overall has been feeling normal otherwise, has been her 1-year-ol. Denies any fevers, chills, abdominal pain, nausea, vomiting, diarrhea, constipation, dysuria, hematuria. The pain is not within the vaginal introitus. Denies history of MRSA. Related Data Home Medications ?Medication ?Instructions ?Recorded ?Confirmed vits no.126-ferrous fum tab PO 06/13/24 01/09/25 28 mg iron-folic acid 800 mcg tablet (Classic ) Previous Rx's ?Medication ?Instructions ?Recorded etonogestrel 0.12 mg-ethinyl 1 vag ring vaginal Q4W #3 ea 07/16/24 estradiol 0.015 mg/24 hr vaginal ring (NuvaRing) levothyroxine 88 mcg tablet 88 mcg PO DAILY #30 tabs 09/08/24 lamotrigine 100 mg tablet 200 mg (2 x 100 mg) PO DAILY #60 11/26/24 tabs methylphenidate HCl 36 mg 36 mg PO QAM #30 tabs 12/29/24 tablet,extended release 24 hr doxycycline hyclate 100 mg capsule 100 mg PO BID 10 days #20 caps 01/09/25 Allergies Allergy/AdvReac Type Severity Reaction Status Date / Time Penicillins Allergy Severe Hives Verified 01/09/25 11:47 Review of Systems <Kristi Murphy PA-C - Last Filed: 01/09/25 19:19> Review of Systems ROS Unobtainable: All systems reviewed & are unremarkable except as noted in HPI and below Patient History <Kristi Murphy PA-C - Last Filed: 01/09/25 19:19> Medical History ADHD (attention deficit hyperactivity disorder), combined type Attention and concentration deficit PTSD (post-traumatic stress disorder) Bipolar II disorder Vision disorder Allergies Conversion disorder (~2018) Depression (~2017) History of bipolar disorder (~2017) Seizure (~2018) ADHD (~2017) Hearing loss Painful menstrual periods Irregular menstrual cycle Heavy menstrual period Chlamydia (~2018) Hypothyroidism COVID-19 Acute focal neurological deficit Expressive aphasia IUD (intrauterine device) in place Dipak's disease Surgical History Anesthesia History of tonsillectomy (~2018) History of section (~10/31/23) Family History Father Mental health problem Grandfather History of heart disease Grandmother Cancer Exam <Kristi Murphy PA-C - Last Filed: 01/09/25 19:19> Narrative Exam Narrative: GENERAL: 29 year old patient appears stated age. Well-developed patient, in no acute distress. HEAD: Atraumatic. Normocephalic. EYES: No scleral icterus. No injection or drainage. NECK: Trachea midline. Cervical ROM intact. CARDIOVASCULAR: Regular rate and rhythm. RESPIRATORY: ?Nonlabored respirations. ?Speaking in clear, full sentences. ?Clear to auscultation. Breath sounds equal bilaterally. No wheezes, rales, or rhonchi. ? GASTROINTESTINAL: Abdomen soft, non-tender, nondistended. Patient gave verbal consent for external pelvic exam. On the left mons pubis region extending to the left labia majora, there is erythema, increased warmth and a palpable proximally 5 cm region of induration/fullness. No fluctuance or drainage. EXTREMITIES: No LE edema. NEURO: AOx3. ?Clear speech. ?Moves all 4 extremities appropriately. SKIN: Remainder of skin is warm, dry, no rashes. Initial Vital Signs Initial Vital Signs: Vital Signs Temperature 98.6 F 01/09/25 11:47 Pulse Rate 67 01/09/25 11:47 Respiratory Rate 20 01/09/25 11:47 Blood Pressure 141/69 H 01/09/25 11:47 Pulse Oximetry 100 01/09/25 11:47 Oxygen Delivery Method Room Air 01/09/25 11:47 <Justa Field MD - Last Filed: 01/09/25 23:58> Initial Vital Signs Initial Vital Signs: Vital Signs Temperature 98.6 F 01/09/25 11:47 Pulse Rate 67 01/09/25 11:47 Respiratory Rate 20 01/09/25 11:47 Blood Pressure 141/69 H 01/09/25 11:47 Pulse Oximetry 100 01/09/25 11:47 Oxygen Delivery Method Room Air 01/09/25 11:47 Course <Kristi Murphy PA-C - Last Filed: 01/09/25 19:19> Orders Ordered: Discontinued Medications Diphenhydramine HCl (Diphenhydramine 50 Mg/Ml Vial) 50 mg IV NOW ONE Stop: 01/09/25 17:52 Last Admin: 01/09/25 17:53 Dose: 50 mg Documented By: PARUL Sodium Chloride (Normal Saline 0.9%) 1,000 mls @ 1,000 mls/hr IV BOLUS ONE Stop: 01/09/25 15:15 Last Infusion: 01/09/25 17:16 Dose: Infused Documented By: Admin: 01/09/25 15:12 Dose: 1,000 mls/hr Documented By: Ceftriaxone Sodium 2,000 mg/ (Sodium Chloride) 100 mls @ 200 mls/hr IV NOW ONE Stop: 01/09/25 17:16 Last Infusion: 01/09/25 18:48 Dose: Infused Documented By: Admin: 01/09/25 18:05 Dose: 200 mls/hr Documented By: PARUL Ketorolac Tromethamine (Ketorolac 30 Mg/Ml Vial) 15 mg IV NOW ONE Stop: 01/09/25 14:17 Last Admin: 01/09/25 15:12 Dose: 15 mg Documented By: Vital Signs Vital signs: Vital Signs - 8 hr 01/09/25 17:27 01/09/25 17:30 01/09/25 17:30 Pulse Rate 71 66 Respiratory Rate 19 Blood Pressure 142/85 H Pulse Oximetry 99 98 01/09/25 18:00 01/09/25 18:00 01/09/25 19:43 Pulse Rate 80 69 Respiratory Rate 13 16 Blood Pressure 122/85 139/86 Pulse Oximetry 100 98 <Justa Field MD - Last Filed: 01/09/25 23:58> Orders Ordered: Discontinued Medications Diphenhydramine HCl (Diphenhydramine 50 Mg/Ml Vial) 50 mg IV NOW ONE Stop: 01/09/25 17:52 Last Admin: 01/09/25 17:53 Dose: 50 mg Documented By: PARUL Sodium Chloride (Normal Saline 0.9%) 1,000 mls @ 1,000 mls/hr IV BOLUS ONE Stop: 01/09/25 15:15 Last Infusion: 01/09/25 17:16 Dose: Infused Documented By: Admin: 01/09/25 15:12 Dose: 1,000 mls/hr Documented By: Ceftriaxone Sodium 2,000 mg/ (Sodium Chloride) 100 mls @ 200 mls/hr IV NOW ONE Stop: 01/09/25 17:16 Last Infusion: 01/09/25 18:48 Dose: Infused Documented By: Admin: 01/09/25 18:05 Dose: 200 mls/hr Documented By: PARUL Ketorolac Tromethamine (Ketorolac 30 Mg/Ml Vial) 15 mg IV NOW ONE Stop: 01/09/25 14:17 Last Admin: 01/09/25 15:12 Dose: 15 mg Documented By: Vital Signs Vital signs: Vital Signs - 8 hr 01/09/25 17:27 01/09/25 17:30 01/09/25 17:30 Pulse Rate 71 66 Respiratory Rate 19 Blood Pressure 142/85 H Pulse Oximetry 99 98 01/09/25 18:00 01/09/25 18:00 01/09/25 19:43 Pulse Rate 80 69 Respiratory Rate 13 16 Blood Pressure 122/85 139/86 Pulse Oximetry 100 98 MDM - Female Genitourinary <Kristi Murphy PA-C - Last Filed: 01/09/25 19:19> Medical Records Attestation: I reviewed the patient's medical records. Medical records narrative: Reviewed walk-in clinic note from today which revealed patient exam concerning for abscess, considered referral to General surgery however as patient will not be seen over the weekend recommended coming to the ER for treatment. Lab Data 01/09/25 11:45 01/09/25 11:45 Labs: Lab Results 01/09/25 01/09/25 Range/Units 11:45 14:45 WBC 11.8 H (4.5-11.0) X10^3/uL RBC 4.85 (4.0-5.2) X10^6/uL Hgb 14.1 (12.0-16.0) g/dL Hct 41.4 (36-46) % MCV 85.3 (80-100) fL MCH 29.0 (26-34) PG MCHC 34.0 (30-36) % RDW 14.6 (11.6-14.8) % Plt Count 357 (150-400) X10^3/uL Neut % (Auto) 75.0 (50-75) % Lymph % (Auto) 16.9 L (25-40) % [place] % (Auto) 6.4 (3-14) % Eos % (Auto) 1.2 L (2-4) % Baso % (Auto) 0.5 (0-2) % Neut # (Auto) 8900 H (5673-2271) /uL Lymph # (Auto) 2000 (9427-6819) /uL [place] # (Auto) 800 (0-900) /uL Eos # (Auto) 100 (0-450) /uL Baso # (Auto) 100 (0-100) /uL Sodium 139 (137-145) mmol/L Potassium 3.6 (3.4-5.1) mmol/L Chloride 106 (98-107) mmol/L Carbon Dioxide 19 L (22-32) mmol/L BUN 8 (7-17) mg/dL Creatinine 0.84 (0.52-1.04) mg/dL Estimated GFR > 60 (>60) mL/min BUN/Creatinine Ratio 9.5 (6-22) Glucose 82 (70-99) mg/dL Lactate 1.0 (0.7-2.1) mmol/L Calcium 9.3 (8.4-10.2) mg/dL Total Bilirubin 0.6 (0.2-1.3) mg/dL AST 27 (14-36) IU/L ALT 23 (<35) IU/L Alkaline Phosphatase 101 (38-126) U/L C-Reactive Protein 2.9 H (<1.0) mg/dL Total Protein 8.0 (6.3-8.2) g/dL Albumin 4.8 (3.5-5.0) g/dL Globulin 3.2 (1.7-4.1) g/dL Albumin/Globulin Ratio 1.5 (1.0-2.8) Urine RBC 1-5/hpf (0-5/HPF) Urine WBC 0-1/hpf (0-5/HPF) Ur Squamous Epith Cells 1-5 /hpf (0-5/HPF) Urine Bacteria Few (2-10) H (None) Urine Mucus 1+ H (Negative) Ur Culture Indicated? Cult not indicated Vol Urine Centrifuged 10ml (spun) Point of Care Testing Test Results Negative Urine Dip Bedside Urine Glucose Negative Bedside Urine Bilirubin - Negative Bedside Urine Ketone ++ 40 Urine Specific [place] 1.025 Bedside Urine Occult Blood +++ Bedside Urine pH 6.0 Bedside Urine Protein + 30 Bedside Urine Urobilinogen - Negative Bedside Urine Nitrite - Negative Bedside Urine Leukocytes - Negative Esterase Imaging Data CT Pelvis: Radiologist's Impression: PROCEDURE: CT PELVIS W CON INDICATIONS: Left mons pubis/vulvar infection, possible abscess TECHNIQUE: After the administration of intravenous contrast, 5 mm thick sections acquired from the iliac crests to the symphysis. 5 mm coronal and sagittal reformats were acquired. For radiation dose reduction, the following was used: automated exposure control, adjustment of mA and/or kV according to patient size. COMPARISON: None. FINDINGS: Image quality: Diagnostic. PELVIS: Peritoneum and Bowel: Bowel loops demonstrate normal wall thickness and caliber. No free fluid or air. Pelvic Organs: No pelvic mass. Bladder: Normal wall thickness, accounting for underdistension. No perivesicular fat stranding. Pelvic Nodes: No enlarged lymph nodes. Miscellaneous: No inguinal hernias are seen. At the lateral aspect of the moans pubis cutaneous and subcutaneous inflammatory change is present, and in this area a single gas bubble can be seen centered on series 2, image 67 with likelihood of a very small amount of adjacent free fluid in the fatty soft tissues, measuring approximately 1 cc. The inflammatory change extends inferiorly towards the perineum to a lesser degree. A sinus tract extending from above is not identified. No peritoneal inflammatory process is seen. A normal appendix is partially visualized at the right lower quadrant. Bones: No aggressive osseous abnormality. IMPRESSION: Asymmetric moderately prominent inflammatory process at the lateral border of the left moans pubis with approximately 1 cc of interdigitating fluid in the fatty soft tissues immediately deep to the inflamed cutaneous surface, and a single small gas bubble is also seen immediately adjacent within the fatty soft tissues deep to the cutaneous later. No evidence of fistulous communication from above. No additional abnormality is found. Dictated by: Bc Fairbanks M.D. on 01/09/2025 at 15:51 Approved by: Bc Fairbanks M.D. on 01/09/2025 at 15:57 [facility] Narrative Medical decision making narrative: 29-year-old female with a past medical history of hypothyroidism, bipolar, PTSD, ADHD who presents to emergency department for a ?bump? on her left pubic area x4 days. Differential diagnosis includes but is not limited to cellulitis, abscess, Augusto's gangrene,, ingrown hair, etc. On exam patient is in no acute distress, nontoxic-appearing, all vital signs within normal limits. External pelvic exam reveals erythema, edema, increased warmth, tenderness of the left mons pubis and left labia majora region without extension into the introitus. Concern for abscess, possible deep space infection, we will obtain CBC, CMP, lactate, CRP, CT pelvis prior to any incision and drainage. We will treat with fluids and Toradol at this time. SIRS screen negative at this time. Labs reveal elevated WBC count 11.8, CRP 2.9, lactate normal 1.0, LRINEC Score 0. Normal electrolytes sodium 139 potassium 3.6, BUN 8, creatinine 0.84, glucose 82. CT reveals signs of cellulitis, possible small fluid collection, see imaging report. Imaging was discussed with attending ER physician who came to the patient's bedside and performed a bedside ultrasound. [address] Field Patient discussed, seen independently evaluated chart is reviewed including CT scan Ultrasound is done at bedside with no obvious abscess drainable at area of concern The area of concern is superficial, no connection deeper into the pelvis or peritoneum. She is given 2 g of ceftriaxone IV Recommended doxycycline for 10 days If she is worse or if feels that it is getting bigger and is now ready to I and DI encouraged her to return to the ER 530pm patient began having pseudoseizures and is brought over from [facility] to the main portion of the emergency department She has had these episodes before. Eyes flickering was told by her neurologist that she needs to talk to her psychologist in her psychologist will not talk to her until she is cleared by her neurologist. She is awake and can respond to direct commands such as ?take a deep breath? and responds well to calm reassurance. The initial episode responded nicely with simple calming reassurance. She is having a another episode and again improved significantly with common reassurance. Going to try IV Benadryl to see if this may help with overall anxiety. Would prefer to avoid benzodiazepines as they not been all that helpful with pseudoseizures. 1915: Jeffrey: Re-evaluated the patient the bedside. All of her symptoms have resolved, she feels very comfortable being discharged home with her pseudo-seizure type episode earlier as this is not new for her. We extensively discussed her mons pubis infection, wound care, PCP follow up and strict ER return precautions. Doxycycline b.i.d. times 10 days sent to her pharmacy of choice, recommended ibuprofen and Tylenol if needed for pain. Patient verbalized understanding of all information agreeable with the plan. She is stable for discharge home. <Justa Field MD - Last Filed: 01/09/25 23:58> Lab Data Labs: Lab Results 01/09/25 01/09/25 Range/Units 11:45 14:45 WBC 11.8 H (4.5-11.0) X10^3/uL RBC 4.85 (4.0-5.2) X10^6/uL Hgb 14.1 (12.0-16.0) g/dL Hct 41.4 (36-46) % MCV 85.3 (80-100) fL MCH 29.0 (26-34) PG MCHC 34.0 (30-36) % RDW 14.6 (11.6-14.8) % Plt Count 357 (150-400) X10^3/uL Neut % (Auto) 75.0 (50-75) % Lymph % (Auto) 16.9 L (25-40) % [place] % (Auto) 6.4 (3-14) % Eos % (Auto) 1.2 L (2-4) % Baso % (Auto) 0.5 (0-2) % Neut # (Auto) 8900 H (4514-5398) /uL Lymph # (Auto) 2000 (6192-3060) /uL [place] # (Auto) 800 (0-900) /uL Eos # (Auto) 100 (0-450) /uL Baso # (Auto) 100 (0-100) /uL Sodium 139 (137-145) mmol/L Potassium 3.6 (3.4-5.1) mmol/L Chloride 106 (98-107) mmol/L Carbon Dioxide 19 L (22-32) mmol/L BUN 8 (7-17) mg/dL Creatinine 0.84 (0.52-1.04) mg/dL Estimated GFR > 60 (>60) mL/min BUN/Creatinine Ratio 9.5 (6-22) Glucose 82 (70-99) mg/dL Lactate 1.0 (0.7-2.1) mmol/L Calcium 9.3 (8.4-10.2) mg/dL Total Bilirubin 0.6 (0.2-1.3) mg/dL AST 27 (14-36) IU/L ALT 23 (<35) IU/L Alkaline Phosphatase 101 (38-126) U/L C-Reactive Protein 2.9 H (<1.0) mg/dL Total Protein 8.0 (6.3-8.2) g/dL Albumin 4.8 (3.5-5.0) g/dL Globulin 3.2 (1.7-4.1) g/dL Albumin/Globulin Ratio 1.5 (1.0-2.8) Urine RBC 1-5/hpf (0-5/HPF) Urine WBC 0-1/hpf (0-5/HPF) Ur Squamous Epith Cells 1-5 /hpf (0-5/HPF) Urine Bacteria Few (2-10) H (None) Urine Mucus 1+ H (Negative) Ur Culture Indicated? Cult not indicated Vol Urine Centrifuged 10ml (spun) Point of Care Testing Test Results Negative Urine Dip Bedside Urine Glucose Negative Bedside Urine Bilirubin - Negative Bedside Urine Ketone ++ 40 Urine Specific [place] 1.025 Bedside Urine Occult Blood +++ Bedside Urine pH 6.0 Bedside Urine Protein + 30 Bedside Urine Urobilinogen - Negative Bedside Urine Nitrite - Negative Bedside Urine Leukocytes - Negative Esterase MDM Narrative Medical decision making narrative: 29-year-old female with a past medical history of hypothyroidism, bipolar, PTSD, ADHD who presents to emergency department for a ?bump? on her left pubic area x4 days. Differential diagnosis includes but is not limited to cellulitis, abscess, Augusto's gangrene,, ingrown hair, etc. On exam patient is in no acute distress, nontoxic-appearing, all vital signs within normal limits. External pelvic exam reveals erythema, edema, increased warmth, tenderness of the left mons pubis and left labia majora region without extension into the introitus. Concern for abscess, possible deep space infection, we will obtain CBC, CMP, lactate, CRP, CT pelvis prior to any incision and drainage. We will treat with fluids and Toradol at this time. SIRS screen negative at this time. Labs reveal elevated WBC count 11.8, CRP 2.9, lactate normal 1.0, LRINEC Score 0. Normal electrolytes sodium 139 potassium 3.6, BUN 8, creatinine 0.84, glucose 82. CT reveals signs of cellulitis, possible small fluid collection, see imaging report. Imaging was discussed with attending ER physician who came to the patient's bedside and performed a bedside ultrasound. [address] Field Patient discussed, seen independently evaluated chart is reviewed including CT scan Ultrasound is done at bedside with no obvious abscess drainable at area of concern The area of concern is superficial, no connection deeper into the pelvis or peritoneum. She is given 2 g of ceftriaxone IV Recommended doxycycline for 10 days If she is worse or if feels that it is getting bigger and is now ready to I and DI encouraged her to return to the ER 530pm patient began having pseudoseizures and is brought over from [facility] to the main portion of the emergency department She has had these episodes before. Eyes flickering was told by her neurologist that she needs to talk to her psychologist in her psychologist will not talk to her until she is cleared by her neurologist. She is awake and can respond to direct commands such as ?take a deep breath? and responds well to calm reassurance. The initial episode responded nicely with simple calming reassurance. She is having a another episode and again improved significantly with common reassurance. Going to try IV Benadryl to see if this may help with overall anxiety. Would prefer to avoid benzodiazepines as they not been all that helpful with pseudoseizures. Discharge Plan Departure Patient Disposition: Home Clinical Impression: Abscess or cellulitis of groin Instructions: DI for Cellulitis -- Adult, DI for Vulvar Abscess Activity Restrictions/Additional Instructions: Dear Ms. Rincon, Thank you for coming to the emergency department. Today you were evaluated for an infection in your pelvic region. Lab work and imaging reveals cellulitis/skin and soft tissue infection, at this time there is no indication for surgery or drainage. You were treated with IV antibiotics, please complete the full 10 day course of oral antibiotics (doxycycline) in addition to keeping the area clean and using warm compresses. Please return to the emergency department if you develop any new or worsening symptoms, spreading redness or swelling, severe pain, fevers or other concerns. Please take Ibuprofen (Motrin/Advil) or Acetaminophen (Tylenol) for pain. These are available over the counter. You may take Ibuprofen 600 mg every 8 hours with food for pain. You may also take Acetaminophen 650 mg every 4-6 hours for pain. Do not exceed 3000 mg of Tylenol a day as this can cause liver damage. Do not drink alcohol with either of these medications. Please follow up with your primary care doctor within the next 2-3 days for ER follow-up. (If you do not have a PCP you can call [phone]. ?to schedule an appointment with an [facility] Primary Care Provider) IF YOU DEVELOP ANY NEW OR WORSENING SYMPTOMS, RETURN TO THE ER! Please read the attached instructions, they highlight more specific treatments and interventions for you at home. Thank you for letting me participate in your care, Kristi Murphy PA-C Prescriptions: New doxycycline hyclate 100 mg capsule 100 mg PO BID 10 Days Qty: 20 0RF No Action etonogestrel-ethinyl estradiol [NuvaRing] 0.12-0.015 mg/24 hr ring 1 vag ring vaginal Q4W Qty: 3 6RF Rx Instructions: leave in for 3 weeks, replace after 3 weeks Classic 28 mg iron- 800 mcg tablet PO levothyroxine 88 mcg tablet 88 mcg PO DAILY Qty: 30 3RF lamotrigine 100 mg tablet 200 mg PO DAILY Qty: 60 2RF methylphenidate HCl 36 mg tablet extended release 24hr 36 mg PO QAM Qty: 30 0RF Referrals: Deborah Molina MD [Primary Care Provider, Family Practice] Stand Alone Forms: Patient Portal/API ED Sign-out <Justa Field MD - Last Filed: 01/09/25 23:58> Cosign ED Attending Cosignature Attestation: I was immediately available in the department for consultation throughout this patient's visit. Justa Field MD
--- NOTE | 2025-01-09 14:16 | DI.CT.S_ITS ---
PROCEDURE: CT PELVIS W CON INDICATIONS: Left mons pubis/vulvar infection, possible abscess TECHNIQUE: After the administration of intravenous contrast, 5 mm thick sections acquired from the iliac crests to the symphysis. 5 mm coronal and sagittal reformats were acquired. For radiation dose reduction, the following was used: automated exposure control, adjustment of mA and/or kV according to patient size. COMPARISON: None. FINDINGS: Image quality: Diagnostic. PELVIS: Peritoneum and Bowel: Bowel loops demonstrate normal wall thickness and caliber. No free fluid or air. Pelvic Organs: No pelvic mass. Bladder: Normal wall thickness, accounting for underdistension. No perivesicular fat stranding. Pelvic Nodes: No enlarged lymph nodes. Miscellaneous: No inguinal hernias are seen. At the lateral aspect of the moans pubis cutaneous and subcutaneous inflammatory change is present, and in this area a single gas bubble can be seen centered on series 2, image 67 with likelihood of a very small amount of adjacent free fluid in the fatty soft tissues, measuring approximately 1 cc. The inflammatory change extends inferiorly towards the perineum to a lesser degree. A sinus tract extending from above is not identified. No peritoneal inflammatory process is seen. A normal appendix is partially visualized at the right lower quadrant. Bones: No aggressive osseous abnormality. IMPRESSION: Asymmetric moderately prominent inflammatory process at the lateral border of the left moans pubis with approximately 1 cc of interdigitating fluid in the fatty soft tissues immediately deep to the inflamed cutaneous surface, and a single small gas bubble is also seen immediately adjacent within the fatty soft tissues deep to the cutaneous later. No evidence of fistulous communication from above. No additional abnormality is found. Dictated by: Bc Fairbanks M.D. on 01/09/2025 at 15:51 Approved by: Bc Fairbanks M.D. on 01/09/2025 at 15:57
[2025-01-09 14:58] LABS: Add Manual Diff / Slide Review NO; Hematocrit 41.4 % (36-46); Hemoglobin 14.1 g/dL (12.0-16.0); Lymphocytes Absolute Auto 2000 /uL (1100-4500); Mean Corpuscular HGB Conc 34.0 % (30-36); Mean Corpuscular Hemoglobin 29.0 PG (26-34); Mean Corpuscular Volume 85.3 fL (80-100); Platelet Count 357 X10^3/uL (150-400)
[2025-01-09] MEDS: SODIUM CHLORIDE 0.9% 1,000 ML 1000 ML IV (15:12)
[2025-01-09] MEDS: KETOROLAC 30 MG/ML VIAL 15 MG IV (15:12)
[2025-01-09 15:18] LABS: Lactate (Lactic Acid) 1.0 mmol/L (0.7-2.1)
[2025-01-09 15:20] LABS: Alanine Aminotransferase 23 IU/L (<35); Albumin 4.8 g/dL (3.5-5.0); Albumin Globulin Ratio 1.5 (1.0-2.8); Alkaline Phosphatase 101 U/L (38-126); Blood Urea Nitrogen 8 mg/dL (7-17); Calcium 9.3 mg/dL (8.4-10.2); Carbon Dioxide 19 mmol/L (22-32); Chloride 106 mmol/L (98-107); Estimated Glomerular Filt Rate > 60 mL/min (>60); Globulin 3.2 g/dL (1.7-4.1); Glucose 82 mg/dL (70-99); HEMOLYSIS < 15 (0-50); Potassium 3.6 mmol/L (3.4-5.1); Sodium 139 mmol/L (137-145); Total Protein 8.0 g/dL (6.3-8.2)
[2025-01-09 16:25] LABS: Culture Indicated Urine Cult Not Indicated
--- NOTE | 2025-01-09 17:22 | PC.NURSE ---
Pt lying back in [facility]. Eyes rolled back and fluttering. Pt able to mumble yes/no responses and will squeeze hide dropper when asked. JANEL Sosa in room with pt. Dr Field notified and pt transferred to room 2. Report given to FRANTZ Tejeda.
[2025-01-09 17:27] VITALS: PULSE 71; O2SAT 99
[2025-01-09 17:30] VITALS: BP 142/85; PULSE 66; RESP 19; O2SAT 98
[2025-01-09] MEDS: diphenhydrAMINE 50 MG/ML VIAL IV (17:53)
[2025-01-09 18:00] VITALS: BP 122/85; PULSE 80; RESP 13; O2SAT 100
[2025-01-09] MEDS: cefTRIAXone 2,000 MG in SODIUM CHLORIDE 0.9% 100 ML 200 MG IV (18:05)
[2025-01-09 19:43] VITALS: BP 139/86; PULSE 69; RESP 16; O2SAT 98
== END 2025-01-09 19:47 | disposition home or self-care (01) ==
PROVIDERS: Emergency Provider Physician Assistant; PCP Student in an Organized Health Care Education/Training Program
DX: L02.214 Cutaneous abscess of groin (principal); L03.314 Cellulitis of groin
CPT/HCPCS: 36415; 72193; 80053; 81003; 81015; 81025; 83605; 85025; 86140; 96361; 96365; 96375; 99284; J0696; J1200; J1885; Q9967